=== PATIENT | female | born 1985 | race Asian ===

== ENCOUNTER 2016-11-19 00:30 | Inpatient (IN) | payer SELFPAY ==
[~2016-11-19] VITALS: Ht 152.4 cm; Wt 59.9 kg
[2016-11-19] MEDS ORDERED: FERR325E14 PO (02:22)
[2016-11-19] MEDS ORDERED: LACTATED RINGERS 1,000 ML IV SCH (02:22)
[2016-11-19] MEDS ORDERED: NALBUPHINE HYDROCHLORIDE 10 MG/ML VIAL IVP PRN (02:25)
[2016-11-19] MEDS ORDERED: METHYLERGONOVINE 0.2 MG/ML AMP IM PRN (02:25)
[2016-11-19] MEDS ORDERED: CARBOPROST 250 MCG/ML AMP IM PRN (02:25)
[2016-11-19] MEDS ORDERED: OXYTOCIN 10 UNITS/ML VIAL IM SCH (02:25)
[2016-11-19] MEDS ORDERED: PROMETHAZINE 25 MG/ML VIAL IVP PRN (02:25)
[2016-11-19] MEDS ORDERED: OXYTOCIN 20 UNITS/LR PREMIX 1,000 ML IV SCH (02:30)
[2016-11-19] MEDS ORDERED: ROPIVACAINE 0.2%/NS PREMIX 250 ML EPI ONE (02:48)
[2016-11-19 02:51] LABS: HEMATOCRIT 37.3 % (36-48); HEMOGLOBIN 12.2 g/dL (12.0-16.0); MEAN CORPUSCULAR HEMOGLOBIN 28 pg (27-31); MEAN CORPUSCULAR HGB CONC 33 g/dL (33-37); MEAN CORPUSCULAR VOLUME 87 fL (80-94); PLATELET COUNT (AUTO) 146 K/uL (140-450); RED BLOOD CELL COUNT(AUTO) 4.28 MIL/uL (4.20-5.40); RED CELL DISTRIBUTION WIDTH 18.1 % (11.6-13.7); WHITE BLOOD COUNT (AUTO) 8.8 K/uL (4.8-10.8)
[2016-11-19 02:52] LABS: APPEARANCE,URINE SL CLOUDY (CLEAR); BILIRUBIN,URINE NEGATIVE (NEGATIVE); BLOOD, URINE 3+ (NEGATIVE); COLOR,URINE YELLOW (YELLOW); LEUKOCYTE ESTERASE ,URINE NEGATIVE (NEGATIVE); NITRITE, URINE NEGATIVE (NEGATIVE); PROTEIN,URINE NEGATIVE (NEGATIVE); UGLUCOSE NEGATIVE (NEGATIVE); UROBILINOGEN,URINE 0.2 EU/dL (0.2 - 1)
[2016-11-19 03:18] LABS: ALBUMIN 2.7 g/dL (3.4-5.0); ANION GAP 12.8 (8-16); CALCIUM 8.5 mg/dL (8.5-10.1); CREATININE 0.5 mg/dL (0.6-1.3); POTASSIUM 3.8 mmol/L (3.5-5.1); TOTAL BILIRUBIN 0.6 mg/dL (0.0-1.0); TOTAL PROTEIN, SERUM 5.8 g/dL (6.4-8.2)
[2016-11-19 03:26] LABS: BAND % (MANUAL) 24 % (0-8); LYMPHOCYTES % (MANUAL) 20 % (20-46); MONOCYTES % (MANUAL) 7 % (5-12); NEUTROPHILS % (MANUAL) 49 (43-65)
[2016-11-19 04:15] LABS: BACTERIA,URINE 4+ /HPF (None Seen); RBC,URINE 0-5 (RARE) /HPF (0-5)
[2016-11-19 07:56] VITALS: BP 92/51
--- NOTE | 2016-11-19 08:01 | NUR ---
PATIENT HAS BEEN SCREENED AND CATEGORIZED LOW NUTRITION RISK. PATIENT WILL BE SEEN WITHIN 7 DAYS OF ADMISSION. 11/25/[address]
[2016-11-19] MEDS ORDERED: OXYTOCIN 20 UNITS/LR PREMIX 1,000 ML IV ONE (08:58)
[2016-11-19] MEDS ORDERED: OXYTOCIN 10 UNITS/ML VIAL ONE ×2 (13:07→18:28)
[2016-11-19] MEDS ORDERED: LIDOCAINE 1% 500 MG/50 ML VIAL INJ SCH (18:40)
[2016-11-19] MEDS ORDERED: NALBUPHINE HYDROCHLORIDE 10 MG/ML VIAL ONE (19:44)
[2016-11-19] MEDS ORDERED: BISACODYL 5 MG TABEC PO PRN (20:25)
[2016-11-19] MEDS ORDERED: BENZOCAINE/MENTHOL 20%-0.5% 60 GM CAN TP PRN (20:25)
[2016-11-19] MEDS ORDERED: WITCH HAZEL 40 PAD PACKAGE TP PRN (20:25)
[2016-11-19] MEDS ORDERED: MEASLES, MUMPS, AND RUBELLA 1 VIAL SQVAC PRN (20:25)
[2016-11-19] MEDS ORDERED: DOCUSATE SODIUM 100 MG GELCAP PO PRN (20:25)
[2016-11-20] MEDS: oxyCODONE/APAP 5/325 MG 1 TAB TAB PO PRN ×2 (02:26→08:42)
[2016-11-20 07:59] LABS: HEMATOCRIT 24.3 % (36-48); MEAN CORPUSCULAR HEMOGLOBIN 29 pg (27-31); MEAN CORPUSCULAR HGB CONC 33 g/dL (33-37); MEAN CORPUSCULAR VOLUME 87 fL (80-94); PLATELET COUNT (AUTO) 150 K/uL (140-450); RED CELL DISTRIBUTION WIDTH 18.5 % (11.6-13.7); WHITE BLOOD COUNT (AUTO) 17.5 K/uL (4.8-10.8)
[2016-11-20 08:04] LABS: LYMPHOCYTES % (MANUAL) 12 % (20-46); MONOCYTES % (MANUAL) 5 % (5-12); NEUTROPHILS % (MANUAL) 68 (43-65)
[2016-11-20 08:05] LABS: BAND % (MANUAL) 15 % (0-8)
[2016-11-20] MEDS: ACETAMINOPHEN 325 MG TAB PO PRN ×2 (13:48→19:58)
[2016-11-21] MEDS: oxyCODONE/APAP 5/325 MG 1 TAB TAB PO PRN (00:32)
[2016-11-21] MEDS: ACETAMINOPHEN 325 MG TAB PO PRN ×2 (10:42→17:50)
[2016-11-21] MEDS ORDERED: ACET-9800 PO (15:28)
[2016-11-21] MEDS ORDERED: ACET-2619 PO (15:36)
== END 2016-11-21 19:36 | disposition home or self-care (01) | DRG 775 ==
LOC: MFCC 00:30
PROVIDERS: ADMIT Obstetrics & Gynecology; ATTEND Obstetrics & Gynecology
PROC: 10D07Z6 Extraction of Products of Conception, Vacuum, Via Natural or Artificial Opening (ICD-10-PCS; principal; 2016-11-19)
PROC: 0UQGXZZ Repair Vagina, External Approach (ICD-10-PCS; 2016-11-19)
PROC: 0HQ9XZZ Repair Perineum Skin, External Approach (ICD-10-PCS; 2016-11-19)
PROC: 0W8NXZZ Division of Female Perineum, External Approach (ICD-10-PCS; 2016-11-19)
PROC: 10907ZC Drainage of Amniotic Fluid, Therapeutic from Products of Conception, Via Natural or Artificial Opening (ICD-10-PCS; 2016-11-19)
PROC: 00HU33Z Insertion of Infusion Device into Spinal Canal, Percutaneous Approach (ICD-10-PCS; 2016-11-19)
PROC: 3E0R3CZ (ICD-10-PCS; 2016-11-19)
PROC: 3E0234Z Introduction of Serum, Toxoid and Vaccine into Muscle, Percutaneous Approach (ICD-10-PCS; 2016-11-21)
DX: O77.0 Labor and delivery complicated by meconium in amniotic fluid (principal); O70.0 First degree perineal laceration during delivery; Z3A.40 40 weeks gestation of pregnancy; Z37.0 Single live birth; Z23 Encounter for immunization
CPT/HCPCS: 36415; 80053; 81001; 85025; 86592; 86886; 86900; 86901; 87086; 90715; J2300; J2590; J2795; J7120